=== PATIENT | male | born 1945 | race Caucasian/White ===

== ENCOUNTER → 2016-10-26 | Outpatient (REF) ==
[~2016-10-26] MED LIST: ASPIRIN 81M81 MG/TA2 PO; CARDI-OMEGA1000 MG PO; PRAVACHOL 40MG40 MG PO
== END ==
LOC: ZLAB.WCH 10:32
DX: Z01.89 Encounter for other specified special examinations (principal)

== ENCOUNTER → 2018-06-10 | Outpatient (REF) ==
[2018-06-10 17:23] LABS: THYROID STIMULATING HORMONE 4.27 uIU/mL (0.465-4.680)
[2018-06-10 17:44] LABS: PSA-TOTAL 0.14 ng/mL (0-4)
== END ==
LOC: ZLAB.WCH 16:24
PROVIDERS: Internal Medicine
DX: Z01.89 Encounter for other specified special examinations (principal)
CPT/HCPCS: G0103